=== PATIENT | female | born 1965 | race Two or more races ===

== ENCOUNTER 2021-05-30 07:18 | Day surgery (SDC) | payer OTHER ==
[2021-05-27 10:36] LABS: Basophils # (auto) 0 10 ^3/uL (0-0.2); Basophils % (auto) 0.5 % (0.0-2.0); Eosinophils # (auto) 0.2 10 ^3/uL (0-0.8); Eosinophils % (auto) 1.8 % (0.0-7.0); Hematocrit 39.4 % (36.0-46.0); Hemoglobin 13.5 g/dL (12.2-16.2); Lymphocytes # (auto) 3.8 10 ^3/uL (0.4-5.4); Lymphocytes % (auto) 40.4 % (10.0-50.0); Mean Corpuscular Hemoglobin 29.5 pg (28.0-32.0); Mean Corpuscular Hgb Conc. 34.2 g/dL (32.0-36.0); Mean Corpuscular Volume 86.1 fL (80.0-100.0); Monocytes # (auto) 0.6 10 ^3/uL (0-1.3); Monocytes % (auto) 6.7 % (0.0-12.0); Neutrophils # (auto) 4.8 10 ^3/uL (1.6-8.6); Neutrophils % (auto) 50.6 % (37.0-80.0); Nucleated Red Blood Cells % 0.3 %; Red Blood Cells 4.58 10^6/uL (4.0-5.20); Red Cell Distribution Width 13.8 % (11.8-14.3); White Blood Cell 9.5 10^3/uL (4.4-10.8)
[2021-05-27 10:43] LABS: Urine Bacteria FEW /hpf (None Seen); Urine Blood Negative /uL (Negative); Urine Specific Gravity 1.005 (1.001-1.035); Urine WBC <1 /hpf (0 - 5)
[2021-05-27 10:50] LABS: INR 0.98 (0.9-1.15); Partial Thromboplastin Time 26.7 sec (23.6-33.0)
[2021-05-27 10:59] LABS: Albumin 3.9 g/dL (3.4-5.0); Calcium 9.1 mg/dL (8.5-10.1); Potassium 4.4 mmol/L (3.5-5.1)
[2021-05-27 11:05] LABS: BUN/Creatinine Ratio 21.3; Bilirubin, Total 0.3 mg/dL (0.2-1.0); Total Protein 7.6 g/dL (6.4-8.2)
[~2021-05-30] VITALS: Ht 33 cm; Wt 0.5 kg
[~2021-05-30 07:18] MED LIST: BACL20TA PO; CHOLTAB12 PO; ESCI10TA PO; IBUP400T22 PO; LORA-622 PO; OMEP20TA PO; [UNRECOGNIZED DRUG - CODE] PO
[2021-05-30] MEDS ORDERED: IODINE STRONG 5% SOLN 14ML ONE (07:57)
[2021-05-30] MEDS ORDERED: FERRIC SUBSULFATE TOPICAL SOLN 30 ML BTL ONE (07:58)
[2021-05-30] MEDS ORDERED: ceFAZolin 1GM/50ML 100 ML IV ONE (08:09)
[2021-05-30] MEDS ORDERED: ONDANSETRON HCL 4 MG/2 ML VIAL ONE (08:16)
[2021-05-30] MEDS ORDERED: MIDAZOLAM HCL 2MG/2ML 2ml VIAL (1mg/ml) ONE (08:16)
[2021-05-30] MEDS ORDERED: LIDOCAINE 2% (LOCAL ANESTH.) PF 5ml SDV ONE (08:16)
[2021-05-30] MEDS ORDERED: PROPOFOL 10 MG/ML 20 ML IV ONE ×2 (08:16→09:15)
[2021-05-30] MEDS ORDERED: fentaNYL CITRATE 5 ML ONE (08:16)
[2021-05-30] MEDS ORDERED: GLYCOPYRROLATE 0.2 MG/ML 1ML VIAL ONE (08:58)
[2021-05-30] MEDS ORDERED: NEOSTIGMINE 1 MG/ML INJ (10mg/10ML VIAL) ONE (08:59)
[2021-05-30] MEDS ORDERED: NALOXONE HCL 0.4 MG/ML VIAL ONE (09:09)
[2021-05-30] MEDS ORDERED: ONDANSETRON HCL 4 MG/2 ML VIAL IV PRN ×2 (09:15→09:30)
[2021-05-30] MEDS ORDERED: LACTATED RINGER'S 1,000 ML IV SCH (09:15)
[2021-05-30 10:00] VITALS: BP 116/58
== END 2021-05-30 10:00 | disposition home or self-care (01) ==
LOC: SUR 07:18
PROVIDERS: ATTEND Obstetrics & Gynecology
DX: R87.810 Cervical high risk human papillomavirus (HPV) DNA test positive (principal); N87.9 Dysplasia of cervix uteri, unspecified; D26.0 Other benign neoplasm of cervix uteri; J45.909 Unspecified asthma, uncomplicated; K21.9 Gastro-esophageal reflux disease without esophagitis; G35 Multiple sclerosis; F32.9 Major depressive disorder, single episode, unspecified; Z98.890 Other specified postprocedural states; Z79.899 Other long term (current) drug therapy; Z88.1 Allergy status to other antibiotic agents; Z80.42 Family history of malignant neoplasm of prostate; Z20.822 Contact with and (suspected) exposure to COVID-19
CPT/HCPCS: 36415; 57522; 80053; 81001; 85025; 85610; 85730; 86850; 86900; 86901; 88305; J0690; J2001; J2250; J2310; J2405; J2704; J3010; U0003

== ENCOUNTER 2022-02-06 12:57 | Day surgery (SDC) | payer OTHER ==
[2022-02-04 14:32] LABS: Basophils # (auto) 0 10 ^3/uL (0-0.2); Basophils % (auto) 0.4 % (0.0-2.0); Eosinophils # (auto) 0.2 10 ^3/uL (0-0.8); Eosinophils % (auto) 2.1 % (0.0-7.0); Hematocrit 38.9 % (36.0-46.0); Hemoglobin 12.6 g/dL (12.2-16.2); Lymphocytes # (auto) 3.4 10 ^3/uL (0.4-5.4); Lymphocytes % (auto) 39.7 % (10.0-50.0); Mean Corpuscular Hemoglobin 27.9 pg (28.0-32.0); Mean Corpuscular Hgb Conc. 32.3 g/dL (32.0-36.0); Mean Corpuscular Volume 86.3 fL (80.0-100.0); Monocytes # (auto) 0.7 10 ^3/uL (0-1.3); Monocytes % (auto) 7.6 % (0.0-12.0); Neutrophils # (auto) 4.3 10 ^3/uL (1.6-8.6); Neutrophils % (auto) 50.2 % (37.0-80.0); Nucleated Red Blood Cells % 0.2 %; Red Blood Cells 4.51 10^6/uL (4.0-5.20); White Blood Cell 8.6 10^3/uL (4.4-10.8)
[2022-02-04 14:59] LABS: Albumin 3.9 g/dL (3.4-5.0); BUN/Creatinine Ratio 18.2; Calcium 8.9 mg/dL (8.5-10.1); Potassium 4.2 mmol/L (3.5-5.1)
[2022-02-04 15:02] LABS: Bilirubin, Total 0.3 mg/dL (0.2-1.0); Total Protein 7.3 g/dL (6.4-8.2)
[2022-02-04 15:08] LABS: Partial Thromboplastin Time 27.6 sec (23.6-33.0)
[~2022-02-06] VITALS: Ht 165.1 cm; Wt 102.1 kg
[~2022-02-06 12:57] MED LIST changes: -BACL20TA PO; +CETI10TA2 PO; -LORA-622 PO; +MONT-8 OR; +[UNRECOGNIZED DRUG - CODE] IV
[2022-02-06] MEDS ORDERED: SODIUM CHLORIDE LOCK 10 ML ONE (14:46)
[2022-02-06] MEDS: diphenhdrAMINE HCL 50 MG/1 ML VL ONE ×2 (15:01→15:04)
[2022-02-06] MEDS: fentaNYL CITRATE 100 MCG/2 ML VL ONE ×4 (15:01→15:19)
[2022-02-06] MEDS: MIDAZOLAM HCL 5 MG/ML-1ML VIAL ONE ×3 (15:01→15:10)
[2022-02-06 15:50] VITALS: BP 114/57
== END 2022-02-06 16:20 | disposition home or self-care (01) ==
LOC: GI 12:57
PROVIDERS: ATTEND Internal Medicine Gastroenterology
DX: R19.4 Change in bowel habit (principal); K63.5 Polyp of colon; K64.8 Other hemorrhoids; G35 Multiple sclerosis; J45.909 Unspecified asthma, uncomplicated; K21.9 Gastro-esophageal reflux disease without esophagitis; Z20.822 Contact with and (suspected) exposure to COVID-19; Z98.890 Other specified postprocedural states; Z79.899 Other long term (current) drug therapy; Z88.5 Allergy status to narcotic agent
CPT/HCPCS: 36415; 45380; 80053; 85025; 85610; 85730; 88305; J1200; J2250; J3010; J7030; U0003; G0500

== ENCOUNTER → 2022-06-10 | Outpatient (CLI) | payer OTHER ==
[~2022-06-10] MED LIST changes: +BACL20TA PO
[2022-06-10 07:30] LABS: Basophils # (auto) 0.1 10 ^3/uL (0-0.2); Basophils % (auto) 0.8 % (0.0-2.0); Eosinophils # (auto) 0.2 10 ^3/uL (0-0.8); Eosinophils % (auto) 2.8 % (0.0-7.0); Hematocrit 37.8 % (36.0-46.0); Hemoglobin 12.9 g/dL (12.2-16.2); Lymphocytes # (auto) 3.6 10 ^3/uL (0.4-5.4); Lymphocytes % (auto) 43.3 % (10.0-50.0); Mean Corpuscular Hemoglobin 28.7 pg (28.0-32.0); Mean Corpuscular Hgb Conc. 34.1 g/dL (32.0-36.0); Mean Corpuscular Volume 84.2 fL (80.0-100.0); Monocytes # (auto) 0.6 10 ^3/uL (0-1.3); Monocytes % (auto) 6.6 % (0.0-12.0); Neutrophils # (auto) 3.9 10 ^3/uL (1.6-8.6); Neutrophils % (auto) 46.5 % (37.0-80.0); Nucleated Red Blood Cells % 0.2 %; Red Cell Distribution Width 13.7 % (11.8-14.3); White Blood Cell 8.4 10^3/uL (4.4-10.8)
[2022-06-10 07:33] LABS: Urine Bacteria FEW /hpf (None Seen); Urine WBC 1 /hpf (0 - 5)
[2022-06-10 08:04] LABS: Albumin 3.7 g/dL (3.4-5.0); Calcium 8.9 mg/dL (8.5-10.1)
[2022-06-10 08:09] LABS: BUN/Creatinine Ratio 19.4; Bilirubin, Total 0.3 mg/dL (0.2-1.0); Total Protein 7.2 g/dL (6.4-8.2)
[2022-06-10 08:11] LABS: Urine Blood Normal /uL (Negative)
== END | disposition home or self-care (01) ==
LOC: LAB 07:10
PROVIDERS: ATTEND Internal Medicine
DX: G35 Multiple sclerosis (principal); F32.9 Major depressive disorder, single episode, unspecified
CPT/HCPCS: 36415; 80053; 80061; 81001; 84439; 84443; 85025; 85652

== ENCOUNTER 2022-06-12 12:24 | Day surgery (SDC) | payer OTHER ==
[~2022-06-12] VITALS: Ht 167.6 cm; Wt 104.3 kg
[2022-06-12] MEDS ORDERED: MIDAZOLAM HCL 5 MG/ML-1ML VIAL ONE (13:08)
[2022-06-12] MEDS ORDERED: diphenhdrAMINE HCL 50 MG/1 ML VL ONE (13:09)
[2022-06-12] MEDS ORDERED: fentaNYL CITRATE 100 MCG/2 ML VL ONE (13:11)
[2022-06-12] MEDS ORDERED: LIDOCAINE 2% JELLY 11ml (GLYDO) ONE (13:11)
[2022-06-12] MEDS ORDERED: LIDOCAINE VISCOUS 2% 15ML UD ONE (13:15)
[2022-06-12] MEDS ORDERED: LIDOCAINE VISCOUS 2% 15ML UD MT ONE (13:51)
[2022-06-12] MEDS ORDERED: diphenhdrAMINE HCL 50 MG/1 ML VL IV ONE ×2 (13:55→13:58)
[2022-06-12] MEDS ORDERED: MIDAZOLAM HCL 5 MG/ML-1ML VIAL IV ONE (13:55)
[2022-06-12] MEDS ORDERED: fentaNYL CITRATE 100 MCG/2 ML VL IV ONE (13:55)
[2022-06-12 14:45] VITALS: BP 102/52
== END 2022-06-12 15:00 | disposition home or self-care (01) ==
LOC: GI 12:24
PROVIDERS: ATTEND Internal Medicine Gastroenterology
DX: K21.9 Gastro-esophageal reflux disease without esophagitis (principal); K44.9 Diaphragmatic hernia without obstruction or gangrene; K29.90 Gastroduodenitis, unspecified, without bleeding; G35 Multiple sclerosis; J45.909 Unspecified asthma, uncomplicated; Z98.890 Other specified postprocedural states; Z20.822 Contact with and (suspected) exposure to COVID-19
CPT/HCPCS: 43239; 88305; 88312; 88342; J1200; J1642; J2250; J3010; J7030; U0003

== ENCOUNTER → 2023-01-11 | Outpatient (CLI) | payer OTHER ==
[~2023-01-11] MED LIST changes: +IBUP-1453 PO; -IBUP400T22 PO
== END | disposition home or self-care (01) ==
LOC: LAB 08:33
PROVIDERS: ATTEND Licensed Practical Nurse
DX: N39.0 Urinary tract infection, site not specified (principal)
CPT/HCPCS: 87086; 87088; 87186